=== PATIENT | male | born 1995 | race Caucasian/White ===

== ENCOUNTER 2017-12-23 15:59 | Emergency (ER) | payer OTHER ==
[2017-12-23 16:13] VITALS: BP 124/64; PULSE 84; TEMP 98.3; BMI 29.2
--- NOTE | 2017-12-23 16:13 | PDOC ---
Rapid Medical Evaluation Time Seen by Provider: 12/23/17 16:09 Medical Evaluation: Allergies Allergy/AdvReac Type Severity Reaction Status Date / Time No Known Allergies Allergy Verified 07/22/15 16:34 12/23/17 16:09 I have performed a brief in-person evaluation of this patient. The patient presents with a chief complaint of: R lower back pain while heavy lifting at work today Pertinent physical exam findings:appears uncomfortable and c/o pain to site on ambulation I have ordered the following:nothing The patient will proceed to the ED for further evaluation. Discharge Disposition - Diagnosis Back strain Qualifiers: Encounter type: initial encounter Qualified Code(s): S39.012A - Strain of muscle, fascia and tendon of lower back, initial encounter - Referrals - Patient Instructions - Post Discharge Activity
[2017-12-23] MEDS ORDERED: KETOROLAC TROMETHAMINE 60 MG/2 ML VIAL IM ONE (16:44)
[2017-12-23] MEDS ORDERED: KETOROLAC TROMETHAMINE 60 MG/2 ML VIAL ONE (16:47)
--- NOTE | 2017-12-23 16:49 | PDOC ---
History of Present Illness - General Chief Complaint: Back Pain Stated Complaint: BACK PAIN Time Seen by Provider: 12/23/17 16:09 - History of Present Illness Initial Comments: 12/23/17 16:45 Chief Complaint: acute back pain History of Present Illness: 22 yo M with no PMH presents to [facility] with R sided low back pain s/p injury at work. Patient reports he bent over to lift something "very heavy" and he felt his back "give out" and it has been in pain ever since. He denies any loss of sensation to his legs and denies any loss of bowel or bladder function. PMH: denies Meds: denies Allergies: denies Soc hx: Denies alcohol, tobacco, drug use. Review of Systems: GENERAL/CONSTITUTIONAL: No fever or chills. HEAD, EYES, EARS, NOSE AND THROAT: No change in vision. No ear pain or discharge. No sore throat. CARDIOVASCULAR: No chest pain or shortness of breath. RESPIRATORY: No cough, wheezing, or hemoptysis. GASTROINTESTINAL: No nausea, vomiting, diarrhea or constipation. No rectal bleeding. GENITOURINARY: No dysuria, frequency, or change in urination. MUSCULOSKELETAL: Back pain since work injury. No bladder or bowel dysfunction. No weakness, difficulty walking. No joint or muscle swelling or pain. No neck pain. SKIN AND BREASTS: No rash or easy bruising. NEUROLOGIC: No headache, vertigo, loss of consciousness, or loss of sensation. PSYCHIATRIC: No depression or anxiety. ENDOCRINE: No increased thirst. No abnormal weight change. HEMATOLOGIC/LYMPHATIC: No anemia, easy bleeding, or history of blood clots. ALLERGIC/IMMUNOLOGIC: No hives or skin allergy. No latex allergy. PHYSICAL EXAM General Appearance: Well-appearing, appropriately dressed. HEENT: EOMI, PERRLA Respiratory/Chest: Lungs CTAB. Cardiovascular: RRR. S1, S2. Gastrointestinal/Abdominal: Normal bowel sounds. Abdomen soft, non-distended. No tenderness or rebound tenderness. No organomegaly, pulsatile mass, guarding , hernia, hepatomegaly, splenomegaly Musculoskeletal/Extremities: Tenderness and palpable spasms to R lower paravertebral muscles. FROM of all extremities, normal capillary refill. Pelvis Stable. No CVA tenderness. No tenderness to extremities, pedal edema, swelling, erythema or deformity. Integumentary: Appropriate color, dry, warm. No cyanosis, erythema, jaundice or rash Neurologic: wood heel flap inserter II-XII intact. Fully oriented, alert. Appropriate mood/affect. Motor strength 5/5. No appreciable EOM palsy, facial droop or sensory deficit. Motor: UE and LE strength 5/5 throughout bilaterally. Muscle tone and bulk normal. Sensory: pin prick & temp : BUE & BLE intact and equal bilaterally Past History - Past Medical History Allergies/Adverse Reactions: Allergies Allergy/AdvReac Type Severity Reaction Status Date / Time No Known Allergies Allergy Verified 12/23/17 16:09 Home Medications: Ambulatory Orders Cyclobenzaprine HCl 10 mg PO HS PRN #7 tablet 12/23/17 Naproxen 375 mg PO BID #14 tablet 12/23/17 COPD: No Other medical history: DENIES. - Suicide/Smoking/Psychosocial Hx Smoking History: Never smoked Have you smoked in the past 12 months: No Hx Alcohol Use: No Drug/Substance Use Hx: No Substance Use Type: None *Physical Exam - Vital Signs Last Vital Signs Temp Pulse Resp BP Pulse Ox 98.3 F 84 19 124/64 96 12/23/17 16:10 12/23/17 16:10 12/23/17 16:10 12/23/17 16:10 12/23/17 16:10 Medical Decision Making - Medical Decision Making 12/23/17 16:49 22 yo M with no PMH presents to [facility] with R sided low back pain s/p injury at work. -Toradol NSAIDS, muscle relaxants Advised patient to take medication as prescribed and follow up with ortho if symptoms persist. Advised patient of signs and symptoms for return to ED. Patient verbalized understanding and agrees to plan. *DC/Admit/Observation/Transfer Diagnosis at time of Disposition: Back strain Qualifiers: Encounter type: initial encounter Qualified Code(s): S39.012A - Strain of muscle, fascia and tendon of lower back, initial encounter - Discharge Dispostion Disposition: HOME Condition at time of disposition: Stable Admit: No - Prescriptions Prescriptions: Cyclobenzaprine HCl 10 mg PO HS PRN #7 tablet PRN Reason: Back Pain Naproxen 375 mg PO BID #14 tablet - Referrals Referrals: Baldomero Eaton MD [Staff Physician] - Nathanael Das MD [Staff Physician] - - Patient Instructions Printed Discharge Instructions: DI for Low Back Pain Additional Instructions: Please take medication as prescribed; do NOT drink alcohol, drive, or operate machinery while taking cyclobenzaprine. As discussed, if your symptoms do not improve in 5-7 days, please follow up with an orthopedics for further evaluation and a possible MRI or physical therapy. If you experience any loss of sensation to your extremities, any loss of bowel or bladder function, any swelling or increased pain to your leg, please return to the ER. - Post Discharge Activity Forms/Work/School Notes: Back to Work
== END 2017-12-23 16:53 | disposition home or self-care (01) ==
LOC: JERFT 15:59
PROC: 3E0233Z Introduction of Anti-inflammatory into Muscle, Percutaneous Approach (ICD-10-PCS; principal; 2017-12-23)
DX: S39.012A Strain of muscle, fascia and tendon of lower back, initial encounter (principal); X58.XXXA Exposure to other specified factors, initial encounter; Y93.89 Activity, other specified; Y92.9 Unspecified place or not applicable; Y99.0 Civilian activity done for income or pay
CPT/HCPCS: 99281-25

== ENCOUNTER 2018-08-12 19:20 | Emergency (ER) | payer OTHER ==
[2018-08-12 19:39] VITALS: BP 125/73; PULSE 72; TEMP 98.1; BMI 32.1
[2018-08-12] MEDS ORDERED: IBUPROFEN 600 MG TABLET (FP) PO ONE ×2 (20:47)
--- NOTE | 2018-08-12 20:47 | PDOC ---
History of Present Illness - General Chief Complaint: Ear Problem Stated Complaint: EAR PROBLEM Time Seen by Provider: 08/12/18 20:39 - History of Present Illness Initial Comments: 08/12/18 20:43 23-year-old male without comorbidities presents for evaluation of left ear pain 1 day without systemic symptoms. Past History - Past Medical History Allergies/Adverse Reactions: Allergies Allergy/AdvReac Type Severity Reaction Status Date / Time No Known Allergies Allergy Verified 08/12/18 19:39 Home Medications: Ambulatory Orders Amox-Tr/K Cl [Augmentin - 875Mg Tablet] 1 tab PO BID #20 tablet 08/12/18 Ciprofloxacin HCl/Dexameth [Ciprodex Otic Suspension] 4 drop BID 7 Days #1 bottle 08/12/18 COPD: No - Suicide/Smoking/Psychosocial Hx Smoking History: Never smoked Have you smoked in the past 12 months: No Information on smoking cessation initiated: No Hx Alcohol Use: No Drug/Substance Use Hx: No Substance Use Type: None Review of Systems - Review of Systems HEENTM: Yes: Ear Pain, Throat Pain *Physical Exam - Vital Signs Last Vital Signs Temp Pulse Resp BP Pulse Ox 98.1 F 72 18 125/73 98 08/12/18 19:37 08/12/18 19:37 08/12/18 19:37 08/12/18 19:37 08/12/18 19:37 - Physical Exam Comments: 08/12/18 20:44 HEAD: NC/AT EYES: Conjuntiva clear Ears: Right tympanic membrane ear canal and normal. Left tympanic membrane is bulging with erythema and what appears to be a purulent effusion behind the eardrum the ear canal is erythematous with minimal discharge NOSE: No d/c THROAT: Moist mucous membrances, oral pharanx clear, uvula midline NECK: Supple without adenopathy CARDIAC: S1 S2 LUNGS: CTA Full and Equal breath sounds ABDOMEN: Soft NT ND MS: Full ROM in all joints without edema NEUROLOGIC: No gross sensory or motor deficits, NVID SKIN: Normal color and temperature no lesions or rashes Moderate Sedation - Procedure Monitoring Vital Signs: Procedure Monitoring Vital Signs Temperature 98.1 F 08/12/18 19:37 Pulse Rate 72 08/12/18 19:37 Respiratory Rate 18 08/12/18 19:37 Blood Pressure 125/73 08/12/18 19:37 O2 Sat by Pulse Oximetry (%) 98 08/12/18 19:37 *DC/Admit/Observation/Transfer Diagnosis at time of Disposition: Otitis media, Otitis externa - Discharge Dispostion Disposition: HOME Condition at time of disposition: Stable Decision to Admit order: No - Referrals Referrals: Gretta Quiroz MD [Primary Care Provider] - Maximo Sauceda MD [Staff Physician] - - Patient Instructions Printed Discharge Instructions: Otitis Externa, Middle Ear Infection, DI for Otitis Externa Additional Instructions: Please take the antibiotics orally and the drops as directed. Return to the emergency room should symptoms worsen or go unresolved. Please follow-up with ear nose and throat doctor as well as her primary care physician in one to 2 days for further evaluation and treatment options. Tylenol and Motrin as directed for pain. - Post Discharge Activity
== END 2018-08-12 20:59 | disposition home or self-care (01) ==
LOC: JERFT 19:20
DX: H65.192 Other acute nonsuppurative otitis media, left ear (principal); H60.8X2 Other otitis externa, left ear
CPT/HCPCS: 99281-25